=== PATIENT | female | born 1980 | race African-American/Black ===

== ENCOUNTER 2019-01-14 23:34 | Emergency (ER) | payer SELFPAY ==
[~2019-01-14] VITALS: Ht 165.1 cm; Wt 63.5 kg
--- NOTE | 2019-01-14 23:56 | NUR ---
Female wild animal caretaker accompanied female patient for Dr. Adrian during pelvic exam. Wet mount specimen sent to lab.
--- NOTE | 2019-01-15 00:39 | NUR ---
Patient discharged to home in stable conditon. Written and verbal after care instructions given. Patient verbalizes understanding of instructions. WALKED OUT OF ER WITH NO DISTRESS NOTED
[2019-01-15 00:40] VITALS: BP 115/78
== END 2019-01-15 00:44 | disposition home or self-care (01) ==
LOC: ER 23:38
DX: N89.8 Other specified noninflammatory disorders of vagina (principal); Z88.8 Allergy status to other drugs, medicaments and biological substances
CPT/HCPCS: 87210; A4663

== ENCOUNTER 2019-05-13 11:32 | Emergency (ER) | payer MEDICAID, OTHER ==
[~2019-05-13] VITALS: Ht 165.1 cm; Wt 63.5 kg
--- NOTE | 2019-05-13 13:33 | NUR ---
DR HELLER MADE PATIENT AWARE OF TEST RESULTS. WILL DC HOME
[2019-05-13 13:34] VITALS: BP 118/75
--- NOTE | 2019-05-13 13:34 | NUR ---
Patient discharged to home in stable conditon. Written and verbal after care instructions given. Patient verbalizes understanding of instructions.
== END 2019-05-13 13:37 | disposition home or self-care (01) ==
LOC: ER 11:33
DX: S90.121A Contusion of right lesser toe(s) without damage to nail, initial encounter (principal); Z88.0 Allergy status to penicillin; Z88.8 Allergy status to other drugs, medicaments and biological substances; W22.8XXA Striking against or struck by other objects, initial encounter; Y93.89 Activity, other specified; Y92.89 Other specified places as the place of occurrence of the external cause; Y99.8 Other external cause status
CPT/HCPCS: 73630; A4663

== ENCOUNTER 2019-07-18 19:33 | Emergency (ER) | payer SELFPAY ==
[~2019-07-18] VITALS: Ht 167.6 cm; Wt 63.5 kg
--- NOTE | 2019-07-18 20:05 | NUR ---
DR. GARCIA AT BEDSIDE FOR MSE.
[2019-07-18] MEDS ORDERED: IBUPROFEN 800 MG TABLET PO ONE (20:15)
[2019-07-18] MEDS ORDERED: IBUPROFEN 800 MG TABLET ONE (20:19)
--- NOTE | 2019-07-18 20:53 | NUR ---
PATIENT RETURNED FROM CT SCAN.
--- NOTE | 2019-07-18 21:27 | NUR ---
Patient discharged to home in stable conditon. Written and verbal after care instructions given. Patient verbalizes understanding of instructions. PATIENT LEFT WITH STABLE GAIT.
[2019-07-18 21:28] VITALS: BP 102/76
== END 2019-07-18 21:29 | disposition home or self-care (01) ==
LOC: ER 19:34
DX: S13.4XXA Sprain of ligaments of cervical spine, initial encounter (principal); R51 Headache; M54.5 Low back pain; M25.512 Pain in left shoulder; Z88.8 Allergy status to other drugs, medicaments and biological substances; V49.49XA Driver injured in collision with other motor vehicles in traffic accident, initial encounter; Y93.89 Activity, other specified; Y92.89 Other specified places as the place of occurrence of the external cause; Y99.8 Other external cause status
CPT/HCPCS: 70450; 71045; 72125; 73030; 93005; A4663

== ENCOUNTER 2019-10-07 02:08 | Emergency (ER) | payer SELFPAY ==
[~2019-10-07] VITALS: Ht 165.1 cm; Wt 61.7 kg
--- NOTE | 2019-10-07 02:28 | NUR ---
PT AMBULATORY W/ STABLE GAIT FR HOME C/O CHEST PAIN STARTED YESTERDAY NONRADIATING -05/25 CENTRAL, SUBSTERNAL AOX3 DENIES SOB/FEVERS/CHILLS/NVD/JOINT PAIN REPORTS SINUS CONGESTION A FEW DAYS AGO DENIES RECENT TRAVELS
--- NOTE | 2019-10-07 02:29 | NUR ---
FEED HANDLER AT BEDSIDE
[2019-10-07] MEDS ORDERED: IBUPROFEN 600 MG TABLET PO ONE (02:45)
[2019-10-07] MEDS ORDERED: IBUPROFEN 600 MG TABLET ONE (02:46)
--- NOTE | 2019-10-07 02:47 | NUR ---
Patient discharged to home in stable conditon. Written and verbal after care instructions given. Patient verbalizes understanding of instructions. AMBULATORY W/ STABLE GAIT ALL BELONGINGS W/ PT
[2019-10-07 02:49] VITALS: BP 125/84
== END 2019-10-07 02:49 | disposition home or self-care (01) ==
LOC: ER 02:10
DX: R07.89 Other chest pain (principal); Z88.8 Allergy status to other drugs, medicaments and biological substances
CPT/HCPCS: 71045; 93005; A4663

== ENCOUNTER 2019-12-07 22:48 | Emergency (ER) | payer MEDICAID ==
[~2019-12-07] VITALS: Ht 165.1 cm; Wt 63.5 kg
--- NOTE | 2019-12-08 00:05 | NUR ---
Patient presents to ER with c/o of Rt foot pain, patient states she injured her foot when she was walking on bleachers. Patient states it is now painful for her to walk. No deformity or swelling noted. Pt in no acute distress. Awaiting MD marrero.
[2019-12-08] MEDS ORDERED: IBUPROFEN 800 MG TABLET PO ONE (00:30)
--- NOTE | 2019-12-08 00:40 | NUR ---
Xray at bedside.
[2019-12-08] MEDS ORDERED: IBUPROFEN 800 MG TABLET ONE (00:53)
[2019-12-08] MEDS ORDERED: HYDROCODONE/APAP 10-325 MG TABLET PO ONE (01:45)
[2019-12-08] MEDS ORDERED: HYDROCODONE/APAP 10-325 MG TABLET ONE (01:46)
--- NOTE | 2019-12-08 01:54 | NUR ---
Patient discharged to home in stable conditon. Assisted to car via wheelchair. No falls noted Written and verbal after care instructions given. Patient verbalizes understanding of instructions. Patient to be driven home by family. Left ER in stable condition in no acute distress.
== END 2019-12-08 01:56 | disposition home or self-care (01) ==
LOC: ER 22:49
DX: S92.201A Fracture of unspecified tarsal bone(s) of right foot, initial encounter for closed fracture (principal); Z88.8 Allergy status to other drugs, medicaments and biological substances; W10.9XXA Fall (on) (from) unspecified stairs and steps, initial encounter; Y93.89 Activity, other specified; Y92.89 Other specified places as the place of occurrence of the external cause; Y99.8 Other external cause status
CPT/HCPCS: 73630; A4663

== ENCOUNTER 2019-12-19 17:28 | Emergency (ER) | payer MEDICAID, OTHER ==
[~2019-12-19] VITALS: Ht 165.1 cm; Wt 62.6 kg
--- NOTE | 2019-12-19 17:44 | NUR ---
Dr Cruz seen and examined the pt.
[2019-12-19 18:05] LABS: *BILIRUBIN,URIN NEGATIVE (NEGATIVE); *BLOOD, URINE NEGATIVE (NEGATIVE); *COLOR,URINE YELLOW (YELLOW); *KETONES,URINE NEGATIVE (NEGATIVE); LEUKOCYTE ESTERASE ,URINE NEGATIVE (NEGATIVE); NITRITE, URINE NEGATIVE (NEGATIVE); PH,URINE 6.5 (5.0-8.0); UGLUCOSE NEGATIVE (NEGATIVE)
[2019-12-19 18:06] LABS: *URINE HCG, QUAL NEGATIVE (NEGATIVE)
[2019-12-19 18:10] LABS: *CLARITY,URINE SLIGHTLY HAZY (CLEAR)
[2019-12-19 18:12] LABS: MUCUS,URINE MANY /LPF (0-FEW); RBC,URINE 0-3 /HPF (0-3); SQUAMOUS EPITHELIAL CELL,UR MODERATE /HPF (NONE SEEN); WBC,URINE NONE SEEN /HPF (0-3)
[2019-12-19 18:22] VITALS: BP 112/77
--- NOTE | 2019-12-19 18:22 | NUR ---
Patient discharged to home in stable conditon. Written and verbal after care instructions given. Patient verbalizes understanding of instructions.
== END 2019-12-19 18:23 | disposition home or self-care (01) ==
LOC: ER 17:28
DX: N76.0 Acute vaginitis (principal)
CPT/HCPCS: 84703; A4663

== ENCOUNTER 2020-04-02 17:51 | Emergency (ER) | payer MEDICAID, OTHER ==
[~2020-04-02] VITALS: Ht 165.1 cm; Wt 63.5 kg
--- NOTE | 2020-04-02 17:51 | NUR ---
Dr. Antunez at bedside for MSE
[2020-04-02] MEDS ORDERED: IBUPROFEN 400 MG TABLET ONE (17:58)
[2020-04-02] MEDS ORDERED: IBUPROFEN 400 MG TABLET PO ONE (18:00)
--- NOTE | 2020-04-02 18:52 | NUR ---
Patient discharged to home in stable condition. Written and verbal after care instructions given. Patient verbalizes understanding of instructions. Stressed follow up or return to ER for worsening s/s. Patient ambulating with steady gait. NAD noted
[2020-04-02 18:53] VITALS: BP 125/63
== END 2020-04-02 18:52 | disposition home or self-care (01) ==
LOC: ER 17:51
DX: M54.12 Radiculopathy, cervical region (principal); M54.6 Pain in thoracic spine; V43.52XA Car driver injured in collision with other type car in traffic accident, initial encounter; Y92.410 Unspecified street and highway as the place of occurrence of the external cause
CPT/HCPCS: A4663

== ENCOUNTER 2020-10-23 22:10 | Emergency (ER) | payer MEDICAID ==
[~2020-10-23] VITALS: Ht 165.1 cm; Wt 65.8 kg
--- NOTE | 2020-10-23 22:30 | NUR ---
Dr. Adrian at bedside for MSE.
[2020-10-23] MEDS ORDERED: ONDANSETRON ODT 4 MG TAB.RAPDIS SL ONE (22:45)
--- NOTE | 2020-10-23 22:45 | NUR ---
Patient discharged to home in stable condition. Written and verbal after care instructions given. Patient verbalizes understanding of instructions. Stressed follow up or return to ER for worsening s/s. Patient ambulated out of ER with steady gait, no acute signs of distress, VSS, all belongings taken.
[2020-10-23] MEDS ORDERED: ONDANSETRON ODT 4 MG TAB.RAPDIS ONE (22:46)
[2020-10-23 22:47] VITALS: BP 123/93
== END 2020-10-23 22:47 | disposition home or self-care (01) ==
LOC: ER 22:14
DX: R51.9 Headache, unspecified (principal); F41.9 Anxiety disorder, unspecified; Z88.8 Allergy status to other drugs, medicaments and biological substances
CPT/HCPCS: A4663; Q0162

== ENCOUNTER 2021-01-19 22:32 | Emergency (ER) | payer MEDICAID ==
[~2021-01-19] VITALS: Ht 165.1 cm; Wt 65.8 kg
--- NOTE | 2021-01-19 23:00 | NUR ---
MD Zaman in room to do MSE.
[2021-01-19] MEDS ORDERED: TDAP DIPH,PERTUSS,TET VAC/PF 0.5 ML DISP.SYRIN IM ONE ×2 (23:15→23:28)
[2021-01-19] MEDS ORDERED: BACI3.5O23 TD (23:30)
[2021-01-19] MEDS ORDERED: NEOMY/BACITRA/POLYMYXIN B OINT UD PACKET TP ONE ×2 (23:30→23:44)
--- NOTE | 2021-01-19 23:30 | NUR ---
Patient is resting on bed, no acute distress is noted at this time.
[2021-01-19] MEDS ORDERED: MUPI22OI2 TP (23:34)
[2021-01-19 23:50] VITALS: BP 124/82
--- NOTE | 2021-01-19 23:50 | NUR ---
Patient discharged to home in stable condition. Written and verbal after care instructions given. Patient verbalizes understanding of instructions. Stressed follow up or return to ER for worsening s/s. Patient ambulates with steady gait, received Rx, left with all personal belongings, V/S stable.
== END 2021-01-19 23:50 | disposition home or self-care (01) ==
LOC: ER 22:34
DX: S70.311A Abrasion, right thigh, initial encounter (principal); W22.09XA Striking against other stationary object, initial encounter; Y92.512 Supermarket, store or market as the place of occurrence of the external cause; Z88.8 Allergy status to other drugs, medicaments and biological substances
CPT/HCPCS: 90715; A4663

== ENCOUNTER 2021-05-21 22:54 | Emergency (ER) | payer SELFPAY ==
[~2021-05-21 22:54] MED LIST: MUPI22OI2 TP
--- NOTE | 2021-05-21 23:14 | NUR ---
Pt stated she does not want to be seen.
== END 2021-05-21 23:54 | disposition left against medical advice (07) ==
LOC: ER 22:56
DX: Z53.21 Procedure and treatment not carried out due to patient leaving prior to being seen by health care provider (principal)